=== PATIENT | female | born 1940 | race Caucasian/White ===

== ENCOUNTER 2016-08-12 19:07 | Inpatient (IN) | payer MEDICARE, OTHER ==
[2016-08-12 19:07] VITALS: BMI 25.6
[2016-08-12] MEDS ORDERED: Sodium Chloride 0.9% 1,000 ML IV ONE (20:05)
[2016-08-12] MEDS ORDERED: Sodium Chloride 0.9% 1,000 ML ONE (20:28)
[2016-08-12 20:30] LABS: BASO % 0.2 % (0.0-2.0); EOS # 0.2 K/uL (0.0-0.7); EOS % 1.9 % (0.0-4.0); HEMATOCRIT 23.9 % (34.0-47.0); LYMPH # 3.4 K/uL (1.0-4.3); LYMPH % 35.7 % (20.0-40.0); MEAN CELL VOLUME 73.5 fL (81.0-99.0); MEAN CORPUSCULAR HEMOGLOBIN 23.6 pg (27.0-31.0); MEAN CORPUSCULAR HGB CONC 32.1 g/dL (33.0-37.0); MONO # 0.7 K/uL (0.0-0.8); MONO % 7.4 % (0.0-10.0); RED CELL DISTRIBUTION WIDTH 17.6 % (11.5-14.5); WHITE BLOOD COUNT 9.5 K/uL (4.8-10.8)
[2016-08-12 20:39] LABS: CHLORIDE 97 mmol/L (98-107)
[2016-08-12 20:40] LABS: POTASSIUM 3.5 mmol/L (3.6-5.2); SODIUM 136 mmol/L (132-148)
[2016-08-12 20:41] LABS: INR 1.1
[2016-08-12 20:42] LABS: ALB/GLOB RATIO 1.1 (1.0-2.1); ALKALINE PHOSPHATASE 53 U/L (38-126); ALT/SGPT 23 U/L (9-52); AST/SGOT 21 U/L (14-36); BILIRUBIN,TOTAL 0.4 mg/dL (0.2-1.3); BLOOD UREA NITROGEN 19 mg/dL (7-17); CARBON DIOXIDE 28 mmol/L (22-30); GFR AFRICAN-AMERICAN > 60; GLUCOSE,RANDOM 98 mg/dL (65-105)
[2016-08-12 20:43] LABS: CALCIUM 8.7 mg/dl (8.6-10.4)
--- NOTE | 2016-08-12 21:19 | C.PDOC ---
Time Seen by Provider: 08/12/16 19:52 Chief Complaint (Nursing): GI Problem History Per: Patient Onset/Duration Of Symptoms: Days (2) Current Symptoms Are (Timing): Still Present Number Of Bleeding Episodes: Multiple: (4) Amount of Blood Loss: Medium Severity: Moderate Quality Of Discomfort: Unable To Describe Associated Symptoms: Melena Modifying Factors: Other Indicated Below Currently Taking: NSAID Additional History Per: Prior Records Past Medical History Reviewed: Historical Data, Nursing Documentation, Vital Signs Vital Signs: Last Vital Signs Temp 97.9 F 08/12/16 23:15 Pulse 86 08/12/16 23:15 Resp 16 08/12/16 23:15 BP 129/66 08/12/16 23:15 Pulse Ox 100 08/12/16 23:15 - Medical History PMH: CVA (Hemorrhagic), HTN, Hypercholesterolemia Surgical History: No Surg Hx - [facility] Procedures COLONOSCOPY (09/09/12) Family History: States: Unknown Family Hx - Social History Hx Tobacco Use: No Hx Alcohol Use: No Hx Substance Use: No - Immunization History Hx Tetanus Toxoid Vaccination: No Hx Influenza Vaccination: Yes Hx Pneumococcal Vaccination: No Review Of Systems Except As Marked, All Systems Reviewed And Found Negative. Constitutional: Positive for: Weakness. Negative for: Fever Cardiovascular: Positive for: Light Headedness Respiratory: Negative for: Shortness of Breath, Hemoptysis Gastrointestinal: Positive for: Nausea, Melena. Negative for: Vomiting, Abdominal Pain Genitourinary: Negative for: Dysuria Musculoskeletal: Negative for: Neck Pain, Back Pain Skin: Negative for: Rash Neurological: Negative for: Weakness, Numbness, Seizures, Altered Mental Status Physical Exam - Physical Exam Appears: No Acute Distress, Chronically Ill Skin: Warm, Dry, Pale Head: Atraumatic Eye(s): bilateral: PERRL, EOMI, Conjunctiva Pale Neck: Normal ROM, Supple Cardiovascular: Rhythm Regular Respiratory: Normal Breath Sounds, No Accessory Muscle Use Gastrointestinal/Abdominal: Soft, No Tenderness Rectal: Heme Positive, Melena Back: No CVA Tenderness Extremity: Normal ROM Neurological/Psych: Oriented x3, Normal Motor, Normal Sensation ED Course And Treatment - Laboratory Results Result Diagrams: 08/12/16 20:19 08/12/16 20:19 Lab Interpretation: Abnormal Interpretation Of Abnormal: Anemia O2 Sat by Pulse Oximetry: 99 Pulse Ox Interpretation: Normal Progress Note: pRBC transfusion started in the ED. Progress - Interventions Interventions:: Observation, Intravenous fluid - Medications Administered Intravenous: Other (PPI) - Data Reviewed Data Reviewed: Lab, Old records - Patient Status Patient status: Partially improved - Critical Care Citical Care: Excluding Proc Time Critical Care Time: 60 minutes - Continuity of Care Discussed patient case with:: Patient, Family-HIPPA compliant, ED Nurse, PMD - Patient Plan Patient Plan: Admission Disposition Discussed With : Wendy Gonzalez-Geovanna Comment: She accepted pt on her service. Doctor Will See Patient In The: Hospital Counseled Patient/Family Regarding: Studies Performed, Diagnosis - Disposition Disposition: HOSPITALIZED Disposition Time: 23:00 Condition: FAIR - Clinical Impression Clinical Impression: Upper GI bleed
[2016-08-12] MEDS: Pantoprazole 80 MG in Sodium Chloride 0.9% 100 ML IVP SCH (21:51)
[2016-08-13 07:05] LABS: HEMATOCRIT 29.2 % (34.0-47.0); MEAN CELL VOLUME 74.8 fL (81.0-99.0); MEAN CORPUSCULAR HEMOGLOBIN 24.6 pg (27.0-31.0); MEAN CORPUSCULAR HGB CONC 32.9 g/dL (33.0-37.0); MEAN PLATELET VOLUME 9.3 fL (7.2-11.7); RED CELL DISTRIBUTION WIDTH 17.6 % (11.5-14.5); WHITE BLOOD COUNT 7.9 K/uL (4.8-10.8)
[2016-08-13 07:25] LABS: CHLORIDE 106 mmol/L (98-107); POTASSIUM 3.3 mmol/L (3.6-5.2); SODIUM 142 mmol/L (132-148)
[2016-08-13 07:27] LABS: GFR AFRICAN-AMERICAN > 60
[2016-08-13 07:28] LABS: BLOOD UREA NITROGEN 11 mg/dL (7-17); CALCIUM 8.2 mg/dl (8.6-10.4); CARBON DIOXIDE 26 mmol/L (22-30); GLUCOSE,RANDOM 98 mg/dL (65-105)
[2016-08-13] MEDS: Pantoprazole 80 MG in Sodium Chloride 0.9% 100 ML IVP SCH (08:18)
[2016-08-13] MEDS: Potassium Ch 20mEq in D5-1/2NS 1,000 ML IV SCH (12:01)
--- NOTE | 2016-08-13 12:29 | CP.PCM.HP ---
History of Present Illness - History of Present Illness History of Present Illness: This is a 75 y/o female with history of hypertension and hyperlipidemia who was admitted through the ER because of melena. Patient claims that she has been chest/epigastric/abdominal pain and nausea since about 2 weeks prior to admission. 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 She also noted passing black stools 2x on the same day and again the next day. She continued to have on and off epigastric pain and had another episode of melena on the day of admission hence she decided to go to the ERand she was subsequently admitted. She denies any history of syncope or vomiting. No palpitations, no headaches or shortness of breath. Patient also has history of arthritis of the knees and ankle and has been taking Naprosyn on a regular basis for the pain. Present on Admission - Present on Admission Any Indicators Present on Admission: No Review of Systems - Review of Systems All systems: reviewed and no additional remarkable complaints except - Constitutional Constitutional: Excessive Sweating - EENT Eyes: As Per HPI - Cardiovascular Cardiovascular: Chest Pain, Diaphoresis, Lightheadedness - Respiratory Respiratory: As Per HPI - Gastrointestinal Gastrointestinal: Abdominal Pain, Bloating, Dyspepsia, Heartburn, Melena, Nausea - Genitourinary Genitourinary: As Per HPI - Musculoskeletal Musculoskeletal: Arthralgias, Joint Swelling - Neurological Neurological: Dizziness Past Patient History - Past Medical History & Family History Past Medical History?: Yes - Past Social History Smoking Status: Never Smoked Chewing Tobacco Use: No Cigar Use: No Alcohol: None Drugs: Denies Home Situation {Lives}: With Family - CARDIAC Hx Hypercholesterolemia: Yes Hx Hypertension: Yes - PULMONARY Hx Respiratory Disorders: No - NEUROLOGICAL Hx Neurological Disorder: Yes HX Cerebrovascular Accident: Yes (2002) - HEENT Hx HEENT Problems: No - RENAL Hx Chronic Kidney Disease: No - ENDOCRINE/METABOLIC Hx Endocrine Disorders: No - HEMATOLOGICAL/ONCOLOGICAL Hx Blood Disorders: No - INTEGUMENTARY Hx Dermatological Problems: No - MUSCULOSKELETAL/RHEUMATOLOGICAL Hx Musculoskeletal Disorders: Yes Hx Arthritis: Yes Hx Degenerative Joint Disease: Yes Hx Falls: No Hx Osteoarthritis: Yes - GASTROINTESTINAL Hx Gastrointestinal Disorders: No - GENITOURINARY/GYNECOLOGICAL Hx Genitourinary Disorders: No - PSYCHIATRIC Hx Psychophysiologic Disorder: No Hx Substance Use: No - SURGICAL HISTORY Hx Surgeries: No - ANESTHESIA Hx Anesthesia: No Meds Allergies/Adverse Reactions: Allergies Allergy/AdvReac Type Severity Reaction Status Date / Time Penicillins Allergy Verified 08/12/16 19:22 Physical Exam - Constitutional Appears: No Acute Distress - Head Exam Head Exam: NORMAL INSPECTION - Eye Exam Eye Exam: Normal appearance - ENT Exam ENT Exam: Normal Exam - Neck Exam Neck exam: Positive for: Normal Inspection - Respiratory Exam Respiratory Exam: Clear to Auscultation Bilateral, NORMAL BREATHING PATTERN - Cardiovascular Exam Cardiovascular Exam: REGULAR RHYTHM, +S1, +S2 - GI/Abdominal Exam GI & Abdominal Exam: Normal Bowel Sounds, Soft - Rectal Exam Rectal Exam: Black Stool - Extremities Exam Extremities exam: Positive for: normal inspection - Neurological Exam Neurological exam: Alert, Oriented x3 - Psychiatric Exam Psychiatric exam: Normal Affect, Normal Mood Results - Vital Signs Recent Vital Signs: Last Vital Signs Temp 97.8 F 08/13/16 07:50 Pulse 74 08/13/16 07:50 Resp 20 08/13/16 07:50 BP 124/74 08/13/16 07:50 Pulse Ox 98 08/13/16 07:50 - Labs Result Diagrams: 08/13/16 06:56 08/13/16 06:56 Labs: Laboratory Results - last 24 hr 08/13/16 08/13/16 06:56 06:56 WBC 7.9 RBC 3.91 Hgb 9.6 L Hct 29.2 L MCV 74.8 L MCH 24.6 L MCHC 32.9 L RDW 17.6 H Plt Count 223 MPV 9.3 Sodium 142 Potassium 3.3 L Chloride 106 Carbon Dioxide 26 Anion Gap 13 BUN 11 Creatinine 0.6 L Est GFR ( Amer) > 60 Est GFR (Non-Af Amer) > 60 Random Glucose 98 Calcium 8.2 L Assessment & Plan - Assessment and Plan (Free Text) Assessment: 1) UGI Bleeding- most llikely due to NSAID. Patient currently NPO and started on Protonix IV. GI consultation requested. 2) Acute Anemia- secondary to above. 1 unit of blood transfusion given and H/H is now 9.6 and 29. H/H being monitored q 12 H 3) Hypokalemia- K- 3.3 on KCl supplement now 4) History of hypertension- currently off antihypertensives and BP WNL at this time. 5) Degenerative Arthritis 6) Hyperlipidemia Decision To Admit - Pt Status Changed To: Hospital Disposition Of: Inpatient - Admit Certification Admit to Inpatient:: After my assessment, the patient will require hospitalization for at least two midnights. This is because of the severity of symptoms shown, intensity of services needed, and/or the medical risk in this patient being treated as an outpatient. - InPatient: Physician Admission Certification:: After my assessment, the patient will require hospitalization for at least two midnights. This is because of the severity of symptoms shown, intensity of services needed, and/or the medical risk in this patient being treated as an outpatient. - . Bed Request Type: Regular Admitting Physician: Wendy Plaza
[2016-08-13] MEDS ORDERED: Lactated Ringer's 500 ML IV ONE (12:53)
[2016-08-13] MEDS ORDERED: Propofol 10 mg/ml Inj (20 ML) ONE (12:54)
[2016-08-13] MEDS ORDERED: Lidocaine 1% Inj (20ml) ONE (12:55)
--- NOTE | 2016-08-13 13:16 | CP.PCM.CON ---
History of Present Illness - History of Present Illness History of Present Illness: melena for few days. Takes NSAIDs Review of Systems - Constitutional Constitutional: Fatigue - Cardiovascular Cardiovascular: absent: Chest Pain, Dyspnea - Respiratory Respiratory: absent: Hemoptysis, Wheezing, Snoring - Gastrointestinal Gastrointestinal: Melena. absent: Abdominal Pain, Hematemesis, Hematochezia, Vomiting - Genitourinary Genitourinary: absent: Hematuria - Musculoskeletal Musculoskeletal: absent: Muscle Cramps - Neurological Neurological: absent: Convulsions Past Patient History - Past Medical History & Family History Past Medical History?: Yes - Past Social History Smoking Status: Never Smoked Chewing Tobacco Use: No Cigar Use: No Alcohol: None Drugs: Denies Home Situation {Lives}: With Family - CARDIAC Hx Hypercholesterolemia: Yes Hx Hypertension: Yes - PULMONARY Hx Respiratory Disorders: No - NEUROLOGICAL Hx Neurological Disorder: Yes HX Cerebrovascular Accident: Yes (2002) - HEENT Hx HEENT Problems: No - RENAL Hx Chronic Kidney Disease: No - ENDOCRINE/METABOLIC Hx Endocrine Disorders: No - HEMATOLOGICAL/ONCOLOGICAL Hx Blood Disorders: No - INTEGUMENTARY Hx Dermatological Problems: No - MUSCULOSKELETAL/RHEUMATOLOGICAL Hx Musculoskeletal Disorders: Yes Hx Arthritis: Yes Hx Degenerative Joint Disease: Yes Hx Falls: No Hx Osteoarthritis: Yes - GASTROINTESTINAL Hx Gastrointestinal Disorders: No - GENITOURINARY/GYNECOLOGICAL Hx Genitourinary Disorders: No - PSYCHIATRIC Hx Psychophysiologic Disorder: No Hx Substance Use: No - SURGICAL HISTORY Hx Surgeries: No - ANESTHESIA Hx Anesthesia: No Meds Allergies/Adverse Reactions: Allergies Allergy/AdvReac Type Severity Reaction Status Date / Time Penicillins Allergy Verified 08/12/16 19:22 - Medications Medications: Current Medications Pantoprazole Sodium 80 mg/ (Sodium Chloride) 100 mls @ 10 mls/hr IVP .Q10H CHERIE PRN Reason: 8 MG/HR Last Admin: 08/13/16 08:18 Dose: 10 mls/hr Potassium Chloride/Dextrose/Sod Cl (Potassium Chl 20 Meq In D5-1/2ns) 1,000 mls @ 80 mls/hr IV .[id number] CHERIE Last Admin: 08/13/16 12:01 Dose: 80 mls/hr Pneumococcal Polyvalent Vaccine (Pneumovax 23 Vaccine) 0.5 ml IM .ONCE ONE Stop: 08/16/16 10:01 Physical Exam - Constitutional Appears: Well - Neck Exam Neck exam: Negative for: Tenderness - Respiratory Exam Respiratory Exam: Clear to Auscultation Bilateral - Cardiovascular Exam Cardiovascular Exam: RRR - GI/Abdominal Exam GI & Abdominal Exam: Normal Bowel Sounds, Soft. absent: Guarding, Tenderness - Extremities Exam Extremities exam: Negative for: calf tenderness - Neurological Exam Neurological exam: Alert, Oriented x3 Results - Vital Signs Recent Vital Signs: Last Vital Signs Temp 97.8 F 08/13/16 12:55 Pulse 73 08/13/16 12:55 Resp 18 08/13/16 12:55 BP 126/83 08/13/16 12:55 Pulse Ox 100 08/13/16 12:55 - Labs Result Diagrams: 08/13/16 06:56 08/13/16 06:56 Labs: Laboratory Results - last 24 hr 08/13/16 08/13/16 06:56 06:56 WBC 7.9 RBC 3.91 Hgb 9.6 L Hct 29.2 L MCV 74.8 L MCH 24.6 L MCHC 32.9 L RDW 17.6 H Plt Count 223 MPV 9.3 Sodium 142 Potassium 3.3 L Chloride 106 Carbon Dioxide 26 Anion Gap 13 BUN 11 Creatinine 0.6 L Est GFR ( Amer) > 60 Est GFR (Non-Af Amer) > 60 Random Glucose 98 Calcium 8.2 L Assessment & Plan (1) Anemia Status: Acute (2) Upper GI bleed Assessment and Plan: Likely ulcer. Rec: PPI NPO EGD No NSAID Status: Acute
[2016-08-13] MEDS ORDERED: Pantoprazole 80 MG in Sodium Chloride 0.9% 100 ML IV SCH (17:45)
[2016-08-13 19:03] VITALS: RESP 20
[2016-08-14] MEDS: Potassium Ch 20mEq in D5-1/2NS 1,000 ML IV SCH ×3 (00:13→13:33)
[2016-08-14 07:18] LABS: CHLORIDE 104 mmol/L (98-107); POTASSIUM 3.4 mmol/L (3.6-5.2); SODIUM 139 mmol/L (132-148)
[2016-08-14 07:20] LABS: HEMATOCRIT 36.4 % (34.0-47.0); MEAN CELL VOLUME 77.4 fL (81.0-99.0); MEAN CORPUSCULAR HEMOGLOBIN 24.9 pg (27.0-31.0); MEAN CORPUSCULAR HGB CONC 32.2 g/dL (33.0-37.0); RED CELL DISTRIBUTION WIDTH 17.7 % (11.5-14.5); WHITE BLOOD COUNT 8.5 K/uL (4.8-10.8)
[2016-08-14 07:21] LABS: BLOOD UREA NITROGEN 6 mg/dL (7-17); CARBON DIOXIDE 26 mmol/L (22-30); GFR AFRICAN-AMERICAN > 60; GLUCOSE,RANDOM 86 mg/dL (65-105)
[2016-08-14 07:22] LABS: CALCIUM 8.9 mg/dl (8.6-10.4)
--- NOTE | 2016-08-14 09:55 | CP.PCM.PN ---
Subjective - Date & Time of Evaluation Date of Evaluation: 08/14/16 Time of Evaluation: 09:53 - Subjective Subjective: CC: follow up gastric ulcer Feels stronger, no BMs. Stable Hgb Denies abdominal pain, dyspnea, chest pain, abdominal pain Objective - Vital Signs/Intake and Output Vital Signs (last 24 hours): Temp Pulse Resp BP Pulse Ox 97.6 F 77 20 147/89 100 08/14/16 07:59 08/14/16 07:59 08/14/16 07:59 08/14/16 07:59 08/14/16 07:59 Intake and Output: 08/14/16 08/14/16 06:59 18:59 Intake Total 2120 Balance 2120 - Medications Medications: Current Medications Potassium Chloride/Dextrose/Sod Cl (Potassium Chl 20 Meq In D5-1/2ns) 1,000 mls @ 80 mls/hr IV .[id number] CHERIE Last Admin: 08/14/16 07:17 Dose: 80 mls/hr Pantoprazole Sodium (Protonix Inj) 40 mg IVP Q12H CHERIE Pneumococcal Polyvalent Vaccine (Pneumovax 23 Vaccine) 0.5 ml IM .ONCE ONE Stop: 08/16/16 10:01 - Labs Labs: 08/14/16 06:44 08/14/16 06:44 PT 12.2 SECONDS (9.7-12.2) 08/12/16 20:19 INR 1.1 08/12/16 20:19 APTT 27 SECONDS (21-34) 08/12/16 20:19 - Constitutional Appears: Well, No Acute Distress - Head Exam Head Exam: NORMOCEPHALIC - Eye Exam Eye Exam: absent: Scleral icterus - Neck Exam Neck Exam: Normal Inspection - Respiratory Exam Respiratory Exam: Clear to Ausculation Bilateral - Cardiovascular Exam Cardiovascular Exam: REGULAR RHYTHM - GI/Abdominal Exam GI & Abdominal Exam: Soft, Normal Bowel Sounds. absent: Tenderness, Organomegaly Assessment and Plan (1) Gastric ulcer due to nonsteroidal anti-inflammatory drug (NSAID) Assessment & Plan: Seen o EGD, nonbleeding. Rec: Avoid NSAIDs. retirement PPI. Check pathology in office Status: Acute (2) Anemia Assessment & Plan: Due to GI Bleed. Stable. Status: Acute (3) Upper GI bleed Assessment & Plan: Gastric ulcer. Resolved. May advance diet. Follow up in office. Status: Acute
--- NOTE | 2016-08-14 09:56 | CP.PCM.PN ---
Subjective - Date & Time of Evaluation Date of Evaluation: 08/14/16 Time of Evaluation: 09:49 - Subjective Subjective: CC: follow up GI Bleed No BMs. Denies chest pain, abdominal pain, dyspnea. Non bleeding Gastric Ulcer, stable Hgb. Objective - Vital Signs/Intake and Output Vital Signs (last 24 hours): Temp Pulse Resp BP Pulse Ox 97.6 F 77 20 147/89 100 08/14/16 07:59 08/14/16 07:59 08/14/16 07:59 08/14/16 07:59 08/14/16 07:59 Intake and Output: 08/14/16 08/14/16 06:59 18:59 Intake Total 2120 Balance 2120 - Medications Medications: Current Medications Potassium Chloride/Dextrose/Sod Cl (Potassium Chl 20 Meq In D5-1/2ns) 1,000 mls @ 80 mls/hr IV .[id number] CHERIE Last Admin: 08/14/16 07:17 Dose: 80 mls/hr Pantoprazole Sodium (Protonix Inj) 40 mg IVP Q12H CHERIE Pneumococcal Polyvalent Vaccine (Pneumovax 23 Vaccine) 0.5 ml IM .ONCE ONE Stop: 08/16/16 10:01 - Labs Labs: 08/14/16 06:44 08/14/16 06:44 PT 12.2 SECONDS (9.7-12.2) 08/12/16 20:19 INR 1.1 08/12/16 20:19 APTT 27 SECONDS (21-34) 08/12/16 20:19 - Constitutional Appears: Well, No Acute Distress - Head Exam Head Exam: NORMOCEPHALIC - Eye Exam Eye Exam: absent: Scleral icterus - Neck Exam Neck Exam: Normal Inspection - Respiratory Exam Respiratory Exam: Clear to Ausculation Bilateral - Cardiovascular Exam Cardiovascular Exam: REGULAR RHYTHM - GI/Abdominal Exam GI & Abdominal Exam: Soft. absent: Tenderness, Organomegaly
[2016-08-14 16:33] LABS: HEMATOCRIT 32.8 % (34.0-47.0)
--- NOTE | 2016-08-14 16:57 | CP.PCM.DIS ---
Provider - Provider Date of Admission: 08/12/16 23:30 Attending physician: Wendy Plaza MD Primary care physician: Myke Plaza Consults: Devin Salas Time Spent in preparation of Discharge (in minutes): 45 Diagnosis - Discharge Diagnosis (1) Gastric ulcer due to nonsteroidal anti-inflammatory drug (NSAID) Status: Resolved (2) Upper GI bleed Status: Resolved (3) Anemia Status: Resolved (4) Hypokalemia Status: Acute Priority: Low Hospital Course - Lab Results Lab Results: Most Recent Lab Values WBC 8.5 K/uL (4.8-10.8) 08/14/16 06:44 RBC 4.71 Mil/uL (3.80-5.20) 08/14/16 06:44 Hgb 10.9 g/dL (11.0-16.0) L 08/14/16 16:24 Hct 32.8 % (34.0-47.0) L 08/14/16 16:24 MCV 77.4 fL (81.0-99.0) L D 08/14/16 06:44 MCH 24.9 pg (27.0-31.0) L 08/14/16 06:44 MCHC 32.2 g/dL (33.0-37.0) L 08/14/16 06:44 RDW 17.7 % (11.5-14.5) H 08/14/16 06:44 Plt Count 168 K/uL (130-400) 08/14/16 06:44 MPV 10.0 fL (7.2-11.7) 08/14/16 06:44 Neut % (Auto) 54.8 % (50.0-75.0) 08/12/16 20:19 Lymph % (Auto) 35.7 % (20.0-40.0) 08/12/16 20:19 Baker % (Auto) 7.4 % (0.0-10.0) 08/12/16 20:19 Eos % (Auto) 1.9 % (0.0-4.0) 08/12/16 20:19 Baso % (Auto) 0.2 % (0.0-2.0) 08/12/16 20:19 Neut # 5.2 K/uL (1.8-7.0) 08/12/16 20:19 Lymph # 3.4 K/uL (1.0-4.3) 08/12/16 20:19 Baker # 0.7 K/uL (0.0-0.8) 08/12/16 20:19 Eos # 0.2 K/uL (0.0-0.7) 08/12/16 20:19 Baso # 0.0 K/uL (0.0-0.2) 08/12/16 20:19 PT 12.2 SECONDS (9.7-12.2) 08/12/16 20:19 INR 1.1 08/12/16 20:19 APTT 27 SECONDS (21-34) 08/12/16 20:19 Sodium 139 mmol/L (132-148) 08/14/16 06:44 Potassium 3.4 mmol/L (3.6-5.2) L 08/14/16 06:44 Chloride 104 mmol/L (98-107) 08/14/16 06:44 Carbon Dioxide 26 mmol/L (22-30) 08/14/16 06:44 Anion Gap 12 (10-20) 08/14/16 06:44 BUN 6 mg/dL (7-17) L 08/14/16 06:44 Creatinine 0.6 MG/DL (0.7-1.2) L 08/14/16 06:44 Est GFR ( Amer) > 60 08/14/16 06:44 Est GFR (Non-Af Amer) > 60 08/14/16 06:44 Random Glucose 86 mg/dL (65-105) 08/14/16 06:44 Calcium 8.9 mg/dl (8.6-10.4) 08/14/16 06:44 Total Bilirubin 0.4 mg/dL (0.2-1.3) 08/12/16 20:19 AST 21 U/L (14-36) 08/12/16 20:19 ALT 23 U/L (9-52) 08/12/16 20:19 Alkaline Phosphatase 53 U/L (38-126) 08/12/16 20:19 Total Protein 7.0 g/dL (6.3-8.3) 08/12/16 20:19 Albumin 3.7 g/dL (3.5-5.0) 08/12/16 20:19 Globulin 3.4 gm/dL (2.2-3.9) 08/12/16 20:19 Albumin/Globulin Ratio 1.1 (1.0-2.1) 08/12/16 20:19 Lipase 158 U/L (23-300) 08/12/16 20:19 Stool Occult Blood Positive (NEGATIVE) H 08/12/16 21:13 Blood Type B POSITIVE 08/12/16 20:19 Antibody Screen Negative 08/12/16 20:19 - Hospital Course Hospital Course: This is a 75 y/o female who was admitted with 2-day history of melena. 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 She thus went to the ER and found to have severe anemia due to UGI Bleed. She was admitted, started on IVF, kept NPO and started on IV Protonix. Abdominal pain went away promptly. GI consultation was obtained and upper endoscopy was done that showed 3 non-bleeding gastric ulcers. Biopsies were taken . H/H was monitored throughout her stay. H/H stabilized after transfusion of 2 units of packed RBC. She did well with no further bleeding episodes. She was started on diet that she tolerated well. She is now being discharged and will be followed up in the office in 1-2 weeks. Prognosis is good. 1) UGI Bleeding- most llikely due to NSAID. Patient currently NPO and started on Protonix IV. GI consultation requested. 2) Acute Anemia- secondary to above. 1 unit of blood transfusion given and H/H is now 9.6 and 29. H/H being monitored q 12 H 3) Hypokalemia- K- 3.3 on KCl supplement now 4) History of hypertension- currently off antihypertensives and BP WNL at this time. 5) Degenerative Arthritis 6) Hyperlipidemia Discharge Exam - Head Exam Head Exam: NORMAL INSPECTION - Eye Exam Eye Exam: Normal appearance - ENT Exam ENT Exam: Mucous Membranes Moist - Neck Exam Neck exam: Normal Inspection - Respiratory Exam Respiratory Exam: Clear to PA & Lateral, NORMAL BREATHING PATTERN - Cardiovascular Exam Cardiovascular Exam: REGULAR RHYTHM, +S1, +S2 - GI/Abdominal Exam GI & Abdominal Exam: Normal Bowel Sounds, Soft - Extremities Exam Extremities exam: normal inspection Discharge Plan - Follow Up Plan Condition: FAIR Disposition: HOME/ ROUTINE
[2016-08-14 17:40] VITALS: BP 126/70; PULSE 74; TEMP 97.3; O2SAT 99
[2016-08-16] MEDS ORDERED: Pneumococcal 23-Valent Vaccine IM ONE (10:00)
== END 2016-08-14 20:00 | disposition home or self-care (01) | DRG 378 ==
LOC: C.ER 19:07 → C.3T 23:30
PROVIDERS: ADMIT Internal Medicine Cardiovascular Disease; ATTEND Internal Medicine Cardiovascular Disease
PROC: 0DB88ZX Excision of Small Intestine, Via Natural or Artificial Opening Endoscopic, Diagnostic (ICD-10-PCS; principal; 2016-08-13 13:00)
PROC: 30233N1 Transfusion of Nonautologous Red Blood Cells into Peripheral Vein, Percutaneous Approach (ICD-10-PCS; 2016-08-14)
DX: K92.2 Gastrointestinal hemorrhage, unspecified (principal); D62 Acute posthemorrhagic anemia; K25.9 Gastric ulcer, unspecified as acute or chronic, without hemorrhage or perforation; I10 Essential (primary) hypertension; Z86.73 Personal history of transient ischemic attack (TIA), and cerebral infarction without residual deficits; E78.00 Pure hypercholesterolemia, unspecified; E78.5 Hyperlipidemia, unspecified; M17.0 Bilateral primary osteoarthritis of knee; M19.072 Primary osteoarthritis, left ankle and foot; M19.071 Primary osteoarthritis, right ankle and foot; T39.395A Adverse effect of other nonsteroidal anti-inflammatory drugs [NSAID], initial encounter; K44.9 Diaphragmatic hernia without obstruction or gangrene

== ENCOUNTER 2017-04-23 08:12 | Day surgery (SDC) | payer MEDICARE, OTHER ==
[2017-04-23 08:27] VITALS: BMI 27.1
[2017-04-23 08:45] VITALS: O2SAT 100
[2017-04-23] MEDS ORDERED: Midazolam 2 MG/2 ML VIAL ONE (09:06)
[2017-04-23] MEDS ORDERED: Propofol 10 mg/ml Inj (20 ML) ONE (09:06)
--- NOTE | 2017-04-23 09:07 | CP.SDSHP ---
Same Day Surgery H & P - History Proposed Procedure: EGD. Colonoscopy Pre-Op Diagnosis: Gastric ulcer- follow up for healing. h/o multiple colon adenomas 2010 - Previous Medical/Surgical History Cardiac: Hypertension, Other (hyperlipidemia, ) Neuro: TIA/CVA Misc: Other (DJD, Gastritis, Peptic ulcer disease(-2017), Colon polyps) Pain: 4.Moderate Pain - Allergies Allergies: Allergies Penicillins Allergy (Verified 04/23/17 08:27) RASH - Physical Exam Vital Signs: Vital Signs 04/23/17 08:30 Temperature 97.3 F L Pulse Rate 76 Respiratory 20 Rate Blood Pressure 149/76 O2 Sat by Pulse 100 Oximetry Mental Status: Alert & Oriented x3 Neuro: WNL Heart: WNL Lungs: WNL GI: WNL - Impression Impression: Acute -assess healing (08/28). h/o multiple colon adenomas- 2010 Pt. Evaluated Today:Candidate for Anesthesia & Procedure: Yes - Date & Time Date: 04/23/17 Time: 09:07 Short Stay Discharge - Short Stay Discharge Admitting Diagnosis/Reason for Visit: ACUTE GASTRIC ULCER, ACUTE GASTRITIS, H/O COLON PO Disposition: HOME/ ROUTINE
[2017-04-23] MEDS ORDERED: Pantoprazole 40 mg EC Tab PO ONE (09:08)
[2017-04-23 09:52] VITALS: TEMP 96.8
[2017-04-23 11:19] VITALS: BP 141/93; PULSE 85; RESP 18
== END 2017-04-23 11:17 | disposition home or self-care (01) ==
LOC: C.ENDO 08:12
PROVIDERS: ATTEND Internal Medicine Gastroenterology
DX: Z12.11 Encounter for screening for malignant neoplasm of colon (principal); K25.3 Acute gastric ulcer without hemorrhage or perforation; Z86.010 Personal history of colon polyps; D12.5 Benign neoplasm of sigmoid colon; E78.5 Hyperlipidemia, unspecified; I10 Essential (primary) hypertension; K21.0 Gastro-esophageal reflux disease with esophagitis; K44.9 Diaphragmatic hernia without obstruction or gangrene; M19.90 Unspecified osteoarthritis, unspecified site; Z86.73 Personal history of transient ischemic attack (TIA), and cerebral infarction without residual deficits; K64.1 Second degree hemorrhoids; Z79.899 Other long term (current) drug therapy
CPT/HCPCS: 43239; 45380; 88305; J2001; J2250; J2704